=== PATIENT | female | born 1980 | race African-American/Black ===

== ENCOUNTER 2019-04-25 02:12 | Emergency (ER) | payer BC, OTHER | END 2019-04-25 02:24 | disposition left against medical advice (07) | LOC: ER 02:14 | DX: R04.0 Epistaxis (principal); Z53.21 Procedure and treatment not carried out due to patient leaving prior to being seen by health care provider ==

== ENCOUNTER 2022-08-26 23:10 | Emergency (ER) | payer OTHER ==
[~2022-08-26] VITALS: Ht 165.1 cm; Wt 79.0 kg
[2022-08-26] MEDS ORDERED: cloNIDine HCL 0.1 MG TAB PO ONE (23:30)
[2022-08-27 00:42] VITALS: BP 135/92
== END 2022-08-27 00:44 | disposition home or self-care (01) ==
LOC: ER 23:10
DX: I10 Essential (primary) hypertension (principal); R04.0 Epistaxis